=== PATIENT | male | born 1950 | race African-American/Black ===

== ENCOUNTER 2019-01-16 11:07 | Inpatient (IN) | payer OTHER ==
[2019-01-16 12:44] VITALS: BMI 28.8
--- NOTE | 2019-01-16 13:27 | HP ---
COWS - Scale Resting Pulse: 0= [place] 80 or Below Sweatin= No chills or Flushing Restless Observation: 0= Sits Still Pupil Size: 0= Normal to Room Light Bone or Joint Aches: 1= Mild Discomfort Runny Nose/ Eye Tearin= Nasal Congestion GI Upset > 30mins: 2= Nausea/Diarrhea Tremor Observation: 1= Tremor [place], Not Seen Yawning Observation: 2= >3x During Session Anxiety or Irritability: 1=Feels Anxious/Irritable Goose Flesh Skin: 0=Smooth Skin COWS Score: 8 CIWA Score Nausea/Vomitin Muscle Tremors: 3 Anxiety: 4-Mod. Anxious/Guarded Agitation: 0-Normal Activity Paroxysmal Sweats: 1-Minimal Palms Moist Orientation: 0-Oriented Tacttile Disturbances: 1-Very Mild Itch/Numbness Auditory Disturbances: 1-Very Mild Visual Disturbances: 1-Very Mild Sensitivity Headache: 2-Mild CIWA-Ar Total Score: 15 - Admission Criteria [facility]ASAS Guidelines: Admission for Medically Managed Detox: Requires at least one of the followin. CIWA greater than 12 2. Seizures within the past 24 hours 3. Delirium tremens within the past 24 hours 4. Hallucinations within the past 24 hours 5. Acute intervention needed for co occurring medical disorder 6. Acute intervention needed for co occurring psychiatric disorder 7. Severe withdrawal that cannot be handled at a lower level of care (continued vomiting, continued diarrhea, abnormal vital signs) requiring intravenous medication and/or fluids 8. Patient presents the following: CIWA greater than 12 Admission Criteria Met: Admission criteria met Admission ROS [facility] - HPI Chief Complaint: I've got to let this drug stuff go, I'm too old for this, I'm getting sick now, though. Allergies/Adverse Reactions: Allergies Allergy/AdvReac Type Severity Reaction Status Date / Time pollen extracts Allergy Mild Itching Verified 01/16/19 12:31 History of Present Illness: 68 yo gentleman here for detox from opiates and alcohol. Previously here in 2016 for treatment; states he has been using for the last two years. States history of methadone program in the past (years ago, can't remember where or when), never on suboxone program. States he fell yesterday while intoxicated and hurt his hand - seen at [facility] [place] and xray done - no fracture, told to take motrin for pain. Currently homeless. Denies seizures but does have black outs. Exam Limitations: No Limitations - Ebola screening Have you traveled outside of the country in the last 21 days: No (N) Have you had contact with anyone from an Ebola affected area: No Do you have a fever: No - Review of Systems Constitutional: Loss of Appetite, Night Sweats, Changes in sleep EENT: reports: Blurred Vision, Nose Congestion Respiratory: reports: No Symptoms reported Cardiac: reports: No Symptoms Reported GI: reports: Diarrhea, Nausea, Poor Appetite : reports: Frequency Musculoskeletal: reports: Joint Pain (right hand), Muscle Pain Integumentary: reports: Dryness, Rash (psoriatic plaque right arm, left inner arm, back) Neuro: reports: Headache, Tremors Endocrine: reports: No Symptoms Reported Hematology: reports: No Symptoms Reported Psychiatric: reports: Judgement Intact, Mood/Affect Appropiate, Orientated x3, Anxious Other Systems: Reviewed and Negative Patient History - Patient Medical History Hx Anemia: No Hx Asthma: No Hx Chronic Obstructive Pulmonary Disease (COPD): No Hx Cancer: No Hx Cardiac Disorders: No Hx Congestive Heart Failure: No Hx Hypertension: Yes Hx Hypercholesterolemia: No Hx Pacemaker: No HX Cerebrovascular Accident: No Hx Seizures: No Hx Dementia: No Hx Diabetes: No Hx Gastrointestinal Disorders: No Hx Liver Disease: No Hx Genitourinary Disorders: No Hx Sexually Transmitted Disorders: No Hx Renal Disease (ESRD): No Hx Thyroid Disease: No Hx Human Immunodeficiency Virus (HIV): No Hx Hepatitis C: No Hx Depression: No Hx Suicide Attempt: No (denies) Hx Bipolar Disorder: No Hx Schizophrenia: No Other Medical History: psoriasis - Patient Surgical History Past Surgical History: No Hx Neurologic Surgery: No Hx Cataract Extraction: No Hx Cardiac Surgery: No Hx Lung Surgery: No Hx Breast Surgery: No Hx Breast Biopsy: No Hx Abdominal Surgery: Yes (R inguinal hernia in 2015) Hx Appendectomy: No Hx Cholecystectomy: No Hx Genitourinary Surgery: No Hx Section: No Hx Orthopedic Surgery: No Hx Hysterectomy: No Anesthesia Reaction: No - PPD History Previous Implant?: Yes Documented Results: Negative w/proof Implanted On Prior R Admission?: Yes Date: 02/05/15 Results: 0 mm PPD to be Administered?: Yes - Reproductive History Patient is a Female of Child Bearing Age (11 -55 yrs old): No (male) - Smoking Cessation Smoking history: Former smoker Have you smoked in the past 12 months: No If you are a former smoker, when did you quit?: 1971 Cigars Per Day: 0 Hx Chewing Tobacco Use: No Initiated information on smoking cessation: No - Substance & Tx. History Hx Alcohol Use: Yes Hx Substance Use: Yes Substance Use Type: Alcohol, Heroin Hx Substance Use Treatment: Yes (detox, rehab, methadone program in past) - Substances abused Alcohol Substance route: Oral Frequency: Daily Amount used: 12 sixteen oz beers and 6 nips (shots of alcohol) Age of first use: 21 Date of last use: 01/15/19 Heroin Substance route: Inhalation Frequency: Daily Amount used: 6 bags Age of first use: 21 Date of last use: 01/15/19 Family Disease History - Family Disease History Family Disease History: Other: Father (, old age), Mother (, old age), Brother (three - healthy), Sister (two - healthy) Admission Physical Exam [facility] - Vital Signs Vital Signs: Vital Signs - 24 hr 01/16/19 12:20 Temperature 98.6 F Pulse Rate 78 Respiratory 16 Rate Blood Pressure 150/86 - Physical General Appearance: Yes: Nourished, Appropriately Dressed, Moderate Distress, Tremorous, Anxious HEENTM: Yes: EOMI, Hearing grossly Normal, Normal ENT Inspection, Normocephalic , Normal Voice, Nasal Congestion Respiratory: Yes: Normal Breath Sounds, No Respiratory Distress Neck: Yes: No masses,lesions,Nodules, Supple Breast: Yes: Breast Exam Deferred Cardiology: Yes: Regular Rhythm, Regular Rate Abdominal: Yes: Soft Genitourinary: Yes: Frequency Back: Yes: Normal Inspection Musculoskeletal: Yes: full range of Motion, Gait Steady, Other (right hand with mild swelling but able to make a fist and move fingers) Extremities: Yes: Normal Inspection, Normal Range of Motion, Non-Tender Neurological: Yes: Fully Oriented, Alert, Normal Mood/Affect, Normal Response Integumentary: Yes: Normal Color, Dry, Warm, Rash (psoriatic plaques both arms, scattered rash on back), Pitting Edema (bilateral lower extremity 1+ edema) Lymphatic: Yes: Within Normal Limits - Diagnostic (1) Alcohol dependence with uncomplicated withdrawal Current Visit: Yes Status: Chronic (2) Opioid dependence with withdrawal Current Visit: Yes Status: Chronic (3) Essential hypertension Current Visit: Yes Status: Chronic (4) Psoriasis Current Visit: Yes Status: Chronic (5) Bilateral edema of lower extremity Current Visit: Yes Status: Chronic (6) Hand injury Current Visit: Yes Status: Acute Qualifiers: Encounter type: subsequent encounter Laterality: right Qualified Code(s) : S69.91XD - Unspecified injury of right wrist, hand and finger(s), subsequent encounter Comment: states treated at [facility] Cleared for Admission [facility] - Detox or Rehab [facility] Level of Care: Medically Managed Detox Regimen/Protocol: Methadone/Librium Breathalyzer - Breathalyzer Breathalyzer: 0.009 Urine Drug Screen - Test Device Lot number: [id number] Expiration date: 08/28/20 - Control Is test valid?: Yes - Results Drug screen NEGATIVE: No Urine drug screen results: FEN-Fentanyl, MOP-Opiates, MTD-Methadone, BZO- Benzodiazepines Inpatient Rehab Admission - Rehab Decision to Admit Inpatient rehab admission?: No
[2019-01-16] MEDS ORDERED: cloNIDine HCL 0.1 MG TABLET PO PRN (13:30)
[2019-01-16] MEDS ORDERED: MENTHOL/PHENOL 1 EACH UD MM PRN (13:30)
[2019-01-16] MEDS ORDERED: hydrOXYzine PAMOATE 25 MG CAPSULE (FP) PO PRN (13:30)
[2019-01-16] MEDS ORDERED: MAGNESIUM CITRATE 300 ML BOTTLE PO PRN (13:30)
[2019-01-16] MEDS ORDERED: BISMUTH SUBSALICYLATE 524 MG/30 ML UD PO PRN (13:30)
[2019-01-16] MEDS ORDERED: chlordiazePOXIDE HCL 25 MG CAPSULE PO PRN (13:30)
[2019-01-16] MEDS ORDERED: MAGNESIUM HYDROX 2400MG/30ML ORAL SUSPENSION 30 ML CUP PO PRN (13:30)
[2019-01-16] MEDS ORDERED: ACETAMINOPHEN 325 MG TABLET (FP) PO PRN ×2 (13:30)
[2019-01-16] MEDS ORDERED: METHOCARBAMOL 500 MG TABLET PO PRN (13:30)
[2019-01-16] MEDS ORDERED: MAG HYDROX/AL HYDROX/SIMETH 30 ML UNIT-DOSE CUP PO PRN (13:30)
[2019-01-16] MEDS ORDERED: MELATONIN 5 MG TABLETS PO PRN (13:30)
[2019-01-16] MEDS ORDERED: COLLOIDAL OATMEAL 1 BAR EACH TP PRN (13:35)
[2019-01-16] MEDS ORDERED: METHADONE HCL 10 MG TABLET PO ONE (14:00)
[2019-01-16] MEDS ORDERED: chlordiazePOXIDE HCL 25 MG CAPSULE PO ONE (14:00)
[2019-01-16] MEDS: amLODIPine BESYLATE 5 MG TABLET (FP) PO SCH (14:46)
[2019-01-16] MEDS: CALAMINE 8% TOPICAL LOTION 177 ML BOTTLE TP SCH (14:47)
[2019-01-16] MEDS: MINERAL OIL/PETROLAT/WATER TOPICAL CREAM 113 GM JAR TP SCH ×2 (14:47→22:49)
[2019-01-16] MEDS: HYDROCORTISONE 1% TOPICAL CREAM 30 GM TUBE TP SCH (14:48)
[2019-01-16] MEDS: chlordiazePOXIDE HCL 25 MG CAPSULE PO SCH ×2 (17:28→22:50)
[2019-01-16] MEDS ORDERED: HYDROCORTISONE 1% TOPICAL OINT 30 GM TUBE TP SCH (22:00)
[2019-01-16] MEDS: THIAMINE HCL 100 MG TABLET (FP) PO SCH (22:50)
[2019-01-16] MEDS ORDERED: METHADONE HCL 10 MG TABLET (FOR DETOX USE ONLY) PO ONE (23:00)
[2019-01-17] MEDS: VITAMINS A AND D TOPICAL OINTMENT 60 GM TUBE TP SCH ×4 (00:30→18:56)
[2019-01-17] MEDS: chlordiazePOXIDE HCL 25 MG CAPSULE PO SCH ×4 (05:34→22:38)
--- NOTE | 2019-01-17 08:40 | PN ---
[facility] CIWA - CIWA Score Nausea/Vomitin-Mild Nausea/No Vomiting Muscle Tremors: 2 Anxiety: 2 Agitation: 3 Paroxysmal Sweats: 1-Minimal Palms Moist Orientation: 2-Disoriented Date<2 days Tacttile Disturbances: 0-None Auditory Disturbances: 0-None Visual Disturbances: 0-None Headache: 0-None Present CIWA-Ar Total Score: 11 [facility] COWS - Scale Resting Pulse: 0= [place] 80 or Below Sweatin= Chills/Flushing Restless Observation: 0= Sits Still Pupil Size: 0= Normal to Room Light Bone or Joint Aches: 1= Mild Discomfort Runny Nose/ Eye Tearin= Nasal Congestion GI Upset > 30mins: 1= Stomach Cramp Tremor Observation of Outstretched Hands: 1= Tremor [place], Not Seen Yawning Observation: 1= 1-2x During Session Anxiety or Irritability: 1=Feels Anxious/Irritable Goose Flesh Skin: 0=Smooth Skin COWS Score: 7 [facility] Progress Note (SOAP) Subjective: feeling weak from drinking alcohol requesting ensure bmi 28 encourage patient drinking water reporting poor tolerate to food and fluid ensure 60 ml bid Objective: 01/17/19 08:37 Vital Signs Temperature 97.4 F L 01/17/19 06:34 Pulse Rate 63 01/17/19 06:34 Respiratory Rate 18 01/17/19 06:34 Blood Pressure 128/76 01/17/19 06:34 O2 Sat by Pulse Oximetry (%) 01/17/19 08:38 lab pending Assessment: 01/17/19 08:38 alcohol and opiate withdrawal Plan: continue detox
[2019-01-17] MEDS ORDERED: METHADONE HCL 5 MG TABLET (FOR DETOX USE ONLY) PO ONE (10:00)
[2019-01-17] MEDS: PRENATAL VITAMINS W/ FOLIC ACID TABLET (FP) PO SCH (10:03)
[2019-01-17] MEDS: amLODIPine BESYLATE 5 MG TABLET (FP) PO SCH (10:03)
[2019-01-17] MEDS: MINERAL OIL/PETROLAT/WATER TOPICAL CREAM 113 GM JAR TP SCH ×2 (10:05→22:47)
[2019-01-17] MEDS: CALAMINE 8% TOPICAL LOTION 177 ML BOTTLE TP SCH (10:05)
[2019-01-17] MEDS: HYDROCORTISONE 1% TOPICAL CREAM 30 GM TUBE TP SCH (10:05)
[2019-01-17 10:18] LABS: ALBUMIN 3.1 g/dl (3.4-5.0); ALK PHOS 70 U/L (45-117); ANION GAP 5 MMOL/L (8-16); BILIRUBIN,TOTAL 0.6 mg/dL (0.2-1); BLOOD UREA NITROGEN 17 mg/dL (7-18); CALCIUM 8.4 mg/dL (8.5-10.1); CHLORIDE 106 mmol/L (98-107); CO2 29 mmol/L (21-32); CREATININE 0.7 mg/dL (0.55-1.3); GLUCOSE,RANDOM 81 mg/dL (74-106); POTASSIUM 4.3 mmol/L (3.5-5.1); SGOT/AST 35 U/L (15-37); SGPT/ALT 36 U/L (13-61); SODIUM 141 mmol/L (136-145)
[2019-01-17 10:31] LABS: HEMATOCRIT 37.9 % (35.4-49); HEMOGLOBIN 12.7 GM/dL (11.7-16.9); MCH 31.9 pg (25.7-33.7); MCHC 33.5 g/dl (32.0-35.9); MEAN CELL VOLUME 95.2 fl (80-96); MEAN PLT VOLUME 9.5 fl (7.5-11.1); PLATELET COUNT 225 K/MM3 (134-434); RBC 3.98 M/mm3 (4.00-5.60); RDW 13.2 % (11.9-15.9); WHITE BLOOD COUNT 6.2 K/mm3 (4.0-10.0)
[2019-01-17] MEDS: IBUPROFEN 400 MG TABLET (FP) PO PRN (11:47)
--- NOTE | 2019-01-17 13:01 | EKG ---
Test Reason : Blood Pressure : / mmHG Vent. Rate : 073 BPM Atrial Rate : 073 BPM P-R Int : 148 ms QRS Dur : 090 ms QT Int : 432 ms P-R-T Axes : 069 047 052 degrees QTc Int : 475 ms NORMAL SINUS RHYTHM NORMAL ECG NO PREVIOUS ECGS AVAILABLE Confirmed by MD ROBERT, IVAN ([id number]) on 01/17/2019 1:01:07 PM Referred By: TANISHA LOU Confirmed By:IVAN JONES MD
[2019-01-17] MEDS: THIAMINE HCL 100 MG TABLET (FP) PO SCH (22:38)
[2019-01-18] MEDS: VITAMINS A AND D TOPICAL OINTMENT 60 GM TUBE TP SCH ×4 (00:11→17:40)
[2019-01-18] MEDS: chlordiazePOXIDE HCL 25 MG CAPSULE PO SCH ×2 (06:26→10:11)
[2019-01-18] MEDS ORDERED: METHADONE HCL 10 MG TABLET (FOR DETOX USE ONLY) PO ONE (10:00)
[2019-01-18] MEDS: amLODIPine BESYLATE 5 MG TABLET (FP) PO SCH (10:11)
[2019-01-18] MEDS: MINERAL OIL/PETROLAT/WATER TOPICAL CREAM 113 GM JAR TP SCH ×2 (10:11→23:54)
[2019-01-18] MEDS: PRENATAL VITAMINS W/ FOLIC ACID TABLET (FP) PO SCH (10:11)
[2019-01-18] MEDS: HYDROCORTISONE 1% TOPICAL CREAM 30 GM TUBE TP SCH (10:12)
[2019-01-18] MEDS: IBUPROFEN 400 MG TABLET (FP) PO PRN (10:12)
[2019-01-18] MEDS: CALAMINE 8% TOPICAL LOTION 177 ML BOTTLE TP SCH (10:13)
[2019-01-18] MEDS ORDERED: amLODIPine BESYLATE 5 MG TABLET (FP) PO ONE (15:41)
--- NOTE | 2019-01-18 15:42 | PN ---
[facility] CIWA - CIWA Score Nausea/Vomitin-No Nausea/No Vomiting Muscle Tremors: 2 Anxiety: 4-Mod. Anxious/Guarded Agitation: 1-Slight > Activity Paroxysmal Sweats: No Perspiration Orientation: 0-Oriented Tacttile Disturbances: 2-Mild Itch/Numbness/Burn Auditory Disturbances: 2-Mild Harshness/Frighten Visual Disturbances: 0-None Headache: 0-None Present CIWA-Ar Total Score: 11 S COWS - Scale Resting Pulse: 0= [place] 80 or Below Sweatin= No chills or Flushing Restless Observation: 1= Difficult to Sit Still Pupil Size: 0= Normal to Room Light Bone or Joint Aches: 0= None Runny Nose/ Eye Tearin= None GI Upset > 30mins: 0= None Tremor Observation of Outstretched Hands: 2= Slight Tremor Visible Yawning Observation: 1= 1-2x During Session Anxiety or Irritability: 4=Extreme Anxiety Goose Flesh Skin: 3=Piloerection COWS Score: 11 S Progress Note (SOAP) Subjective: Anxious, Tremors, Body Aches Interrupted Sleep. Objective: PATIENT A & O X 3, OBSERVED AMBULATING ON UNIT UNASSISTED. IN NO ACUTE DISTRESS. 01/18/19 15:43 Vital Signs Temperature 97.4 F L 01/18/19 13:40 Pulse Rate 65 01/18/19 13:40 Respiratory Rate 18 01/18/19 13:40 Blood Pressure 153/83 01/18/19 13:40 O2 Sat by Pulse Oximetry (%) Laboratory Tests 01/17/19 01/17/19 01/17/19 07:40 07:40 07:40 WBC 6.2 RBC 3.98 L Hgb 12.7 Hct 37.9 MCV 95.2 MCH 31.9 MCHC 33.5 RDW 13.2 Plt Count 225 MPV 9.5 Sodium 141 Potassium 4.3 Chloride 106 Carbon Dioxide 29 Anion Gap 5 L BUN 17 Creatinine 0.7 Creat Clearance w eGFR 112.15 Random Glucose 81 Calcium 8.4 L Total Bilirubin 0.6 AST 35 ALT 36 Alkaline Phosphatase 70 Total Protein 6.0 L Albumin 3.1 L RPR Titer Nonreactive LABS NOTED. Assessment: 01/18/19 15:44 WITHDRAWAL SYMPTOMS. HYPERTENSION. Plan: CONTINUE DETOX. INCREASE DAILY DOSE OF AMLODIPINE TO 10 MG PO DAILY FOR ELEVATED BP DESPITE PREVIOUS TREATMENT.
[2019-01-18] MEDS ORDERED: chlordiazePOXIDE HCL 10 MG CAPSULE PO PRN (17:00)
[2019-01-18] MEDS: chlordiazePOXIDE HCL 10 MG CAPSULE PO SCH ×2 (17:36→22:20)
[2019-01-18] MEDS: THIAMINE HCL 100 MG TABLET (FP) PO SCH (22:20)
[2019-01-18] MEDS: AMMONIUM LACTATE 12% LOTION 225 GM BOTTLE TP SCH (23:54)
[2019-01-19] MEDS: VITAMINS A AND D TOPICAL OINTMENT 60 GM TUBE TP SCH ×5 (01:06→23:59)
[2019-01-19] MEDS ORDERED: METHADONE HCL 5 MG TABLET (FOR DETOX USE ONLY) PO ONE (06:00)
[2019-01-19] MEDS: chlordiazePOXIDE HCL 10 MG CAPSULE PO SCH ×3 (06:45→17:23)
[2019-01-19] MEDS: PRENATAL VITAMINS W/ FOLIC ACID TABLET (FP) PO SCH (10:27)
[2019-01-19] MEDS: HYDROCORTISONE 1% TOPICAL CREAM 30 GM TUBE TP SCH (10:27)
[2019-01-19] MEDS: amLODIPine BESYLATE 10 MG TABLET (FP) PO SCH (10:27)
[2019-01-19] MEDS: CALAMINE 8% TOPICAL LOTION 177 ML BOTTLE TP SCH (10:27)
[2019-01-19] MEDS: MINERAL OIL/PETROLAT/WATER TOPICAL CREAM 113 GM JAR TP SCH ×2 (10:27→22:25)
[2019-01-19] MEDS: AMMONIUM LACTATE 12% LOTION 225 GM BOTTLE TP SCH ×2 (10:29→22:26)
--- NOTE | 2019-01-19 17:25 | PN ---
[facility] CIWA - CIWA Score Nausea/Vomitin-No Nausea/No Vomiting Muscle Tremors: None Anxiety: 4-Mod. Anxious/Guarded Agitation: 2 Paroxysmal Sweats: No Perspiration Orientation: 0-Oriented Tacttile Disturbances: 2-Mild Itch/Numbness/Burn Auditory Disturbances: 1-Very Mild Visual Disturbances: 2-Mild Sensitivity Headache: 0-None Present CIWA-Ar Total Score: 11 S COWS - Scale Resting Pulse: 1= [place] 81-100 Sweatin= No chills or Flushing Restless Observation: 1= Difficult to Sit Still Pupil Size: 0= Normal to Room Light Bone or Joint Aches: 2= Severe Diffuse Aches Runny Nose/ Eye Tearin= None GI Upset > 30mins: 0= None Tremor Observation of Outstretched Hands: 0= None Yawning Observation: 0= None Anxiety or Irritability: 4=Extreme Anxiety Goose Flesh Skin: 0=Smooth Skin COWS Score: 8 [facility] Progress Note (SOAP) Subjective: Anxious, Body Aches, Interrupted Sleep. Objective: PATIENT A & O X 3, OBSERVED AMBULATING ON UNIT UNASSISTED. IN NO ACUTE DISTRESS. 01/19/19 17:23 Vital Signs Temperature 96.7 F L 01/19/19 13:29 Pulse Rate 81 01/19/19 13:29 Respiratory Rate 18 01/19/19 13:29 Blood Pressure 116/77 01/19/19 13:29 O2 Sat by Pulse Oximetry (%) Laboratory Tests 01/17/19 01/17/19 01/17/19 07:40 07:40 07:40 WBC 6.2 RBC 3.98 L Hgb 12.7 Hct 37.9 MCV 95.2 MCH 31.9 MCHC 33.5 RDW 13.2 Plt Count 225 MPV 9.5 Sodium 141 Potassium 4.3 Chloride 106 Carbon Dioxide 29 Anion Gap 5 L BUN 17 Creatinine 0.7 Creat Clearance w eGFR 112.15 Random Glucose 81 Calcium 8.4 L Total Bilirubin 0.6 AST 35 ALT 36 Alkaline Phosphatase 70 Total Protein 6.0 L Albumin 3.1 L RPR Titer Nonreactive LABS NOTED. Assessment: 01/19/19 17:24 WITHDRAWAL SYMPTOMS. Plan: CONTINUE DETOX. INCREASE DAILY PO FLUID INTAKE.
[2019-01-19] MEDS: THIAMINE HCL 100 MG TABLET (FP) PO SCH (22:24)
[2019-01-20] MEDS: chlordiazePOXIDE HCL 10 MG CAPSULE PO SCH ×2 (05:53→17:59)
[2019-01-20] MEDS: IBUPROFEN 400 MG TABLET (FP) PO PRN (05:55)
[2019-01-20] MEDS: VITAMINS A AND D TOPICAL OINTMENT 60 GM TUBE TP SCH ×4 (05:56→23:10)
[2019-01-20] MEDS: amLODIPine BESYLATE 10 MG TABLET (FP) PO SCH (10:43)
[2019-01-20] MEDS: CALAMINE 8% TOPICAL LOTION 177 ML BOTTLE TP SCH (10:43)
[2019-01-20] MEDS: PRENATAL VITAMINS W/ FOLIC ACID TABLET (FP) PO SCH (10:43)
[2019-01-20] MEDS: MINERAL OIL/PETROLAT/WATER TOPICAL CREAM 113 GM JAR TP SCH ×2 (10:43→22:37)
[2019-01-20] MEDS: AMMONIUM LACTATE 12% LOTION 225 GM BOTTLE TP SCH ×2 (10:43→22:35)
[2019-01-20] MEDS: HYDROCORTISONE 1% TOPICAL CREAM 30 GM TUBE TP SCH (10:44)
--- NOTE | 2019-01-20 11:00 | PN ---
[facility] CIWA - CIWA Score Nausea/Vomitin-No Nausea/No Vomiting Muscle Tremors: 2 Anxiety: 2 Agitation: 1-Slight > Activity Paroxysmal Sweats: 1-Minimal Palms Moist Orientation: 0-Oriented Tacttile Disturbances: 0-None Auditory Disturbances: 0-None Visual Disturbances: 0-None Headache: 1-Very Mild CIWA-Ar Total Score: 7 [facility] COWS - Scale Resting Pulse: 1= [place] 81-100 Sweatin= No chills or Flushing Restless Observation: 0= Sits Still Pupil Size: 0= Normal to Room Light Bone or Joint Aches: 1= Mild Discomfort Runny Nose/ Eye Tearin= Nasal Congestion GI Upset > 30mins: 0= None Tremor Observation of Outstretched Hands: 1= Tremor [place], Not Seen Yawning Observation: 0= None Anxiety or Irritability: 1=Feels Anxious/Irritable Goose Flesh Skin: 0=Smooth Skin COWS Score: 5 [facility] Progress Note (SOAP) Subjective: chart reviewed that the patient had withdrawal sx yesterday therefore not been discharged today patient is feeling better today with ciwa 7 and cows 5 brief writer will discuss aftercare with counselor waiting for counselor arrival around 12 noon Objective: 01/20/19 11:02 Vital Signs Temperature 97.5 F L 01/20/19 10:42 Pulse Rate 83 01/20/19 10:42 Respiratory Rate 18 01/20/19 10:42 Blood Pressure 144/85 01/20/19 10:42 O2 Sat by Pulse Oximetry (%) Laboratory Last Values WBC 6.2 K/mm3 (4.0-10.0) 01/17/19 07:40 RBC 3.98 M/mm3 (4.00-5.60) L 01/17/19 07:40 Hgb 12.7 GM/dL (11.7-16.9) 01/17/19 07:40 Hct 37.9 % (35.4-49) 01/17/19 07:40 MCV 95.2 fl (80-96) 01/17/19 07:40 MCH 31.9 pg (25.7-33.7) 01/17/19 07:40 MCHC 33.5 g/dl (32.0-35.9) 01/17/19 07:40 RDW 13.2 % (11.9-15.9) 01/17/19 07:40 Plt Count 225 K/MM3 (134-434) 01/17/19 07:40 MPV 9.5 fl (7.5-11.1) 01/17/19 07:40 Sodium 141 mmol/L (136-145) 01/17/19 07:40 Potassium 4.3 mmol/L (3.5-5.1) 01/17/19 07:40 Chloride 106 mmol/L (98-107) 01/17/19 07:40 Carbon Dioxide 29 mmol/L (21-32) 01/17/19 07:40 Anion Gap 5 MMOL/L (8-16) L 01/17/19 07:40 BUN 17 mg/dL (7-18) 01/17/19 07:40 Creatinine 0.7 mg/dL (0.55-1.3) 01/17/19 07:40 Creat Clearance w eGFR 112.15 (>60) 01/17/19 07:40 Random Glucose 81 mg/dL (74-106) 01/17/19 07:40 Calcium 8.4 mg/dL (8.5-10.1) L 01/17/19 07:40 Total Bilirubin 0.6 mg/dL (0.2-1) 01/17/19 07:40 AST 35 U/L (15-37) 01/17/19 07:40 ALT 36 U/L (13-61) 01/17/19 07:40 Alkaline Phosphatase 70 U/L (45-117) 01/17/19 07:40 Total Protein 6.0 g/dl (6.4-8.2) L 01/17/19 07:40 Albumin 3.1 g/dl (3.4-5.0) L 01/17/19 07:40 RPR Titer Nonreactive (NONREACTIVE) 01/17/19 07:40 lab noted Assessment: 01/20/19 11:02 mild alcohol and opiate withdrawal sx Plan: continue detox from alcohol and opiate
[2019-01-20] MEDS: METHYL SALICYLATE/MENTHOL OINT 30 GM TUBE TP SCH ×2 (12:03→22:32)
[2019-01-20] MEDS: THIAMINE HCL 100 MG TABLET (FP) PO SCH (22:35)
[2019-01-21] MEDS: VITAMINS A AND D TOPICAL OINTMENT 60 GM TUBE TP SCH (06:03)
[2019-01-21] MEDS: PRENATAL VITAMINS W/ FOLIC ACID TABLET (FP) PO SCH (09:04)
[2019-01-21] MEDS: amLODIPine BESYLATE 10 MG TABLET (FP) PO SCH (09:05)
[2019-01-21 09:21] VITALS: BP 136/85; PULSE 82; TEMP 96.7
--- NOTE | 2019-01-21 09:51 | DS ---
[facility] Detox Discharge Summary Admission Date: 01/16/19 Discharge Date: 01/21/19 - History Present History: Alcohol Dependence, Opioid Dependence Additional Comments: 68 years old male admitted on 01/16/19 for alcohol and opiate withdrawal stablization completed detox regimen aftercare patient wants to go to crisis facility waiting for housing Pertinent Past History: bring in medication list and lab report to aftercare appointment - Physical Exam Results Vital Signs: Vital Signs Temperature 96.7 F L 01/21/19 09:20 Pulse Rate 82 01/21/19 09:20 Respiratory Rate 18 01/21/19 09:20 Blood Pressure 136/85 01/21/19 09:20 O2 Sat by Pulse Oximetry (%) Pertinent Admission Physical Exam Findings: alcohol and opiate withdrawal sx Laboratory Last Values WBC 6.2 K/mm3 (4.0-10.0) 01/17/19 07:40 RBC 3.98 M/mm3 (4.00-5.60) L 01/17/19 07:40 Hgb 12.7 GM/dL (11.7-16.9) 01/17/19 07:40 Hct 37.9 % (35.4-49) 01/17/19 07:40 MCV 95.2 fl (80-96) 01/17/19 07:40 MCH 31.9 pg (25.7-33.7) 01/17/19 07:40 MCHC 33.5 g/dl (32.0-35.9) 01/17/19 07:40 RDW 13.2 % (11.9-15.9) 01/17/19 07:40 Plt Count 225 K/MM3 (134-434) 01/17/19 07:40 MPV 9.5 fl (7.5-11.1) 01/17/19 07:40 Sodium 141 mmol/L (136-145) 01/17/19 07:40 Potassium 4.3 mmol/L (3.5-5.1) 01/17/19 07:40 Chloride 106 mmol/L (98-107) 01/17/19 07:40 Carbon Dioxide 29 mmol/L (21-32) 01/17/19 07:40 Anion Gap 5 MMOL/L (8-16) L 01/17/19 07:40 BUN 17 mg/dL (7-18) 01/17/19 07:40 Creatinine 0.7 mg/dL (0.55-1.3) 01/17/19 07:40 Creat Clearance w eGFR 112.15 (>60) 01/17/19 07:40 Random Glucose 81 mg/dL (74-106) 01/17/19 07:40 Calcium 8.4 mg/dL (8.5-10.1) L 01/17/19 07:40 Total Bilirubin 0.6 mg/dL (0.2-1) 01/17/19 07:40 AST 35 U/L (15-37) 01/17/19 07:40 ALT 36 U/L (13-61) 01/17/19 07:40 Alkaline Phosphatase 70 U/L (45-117) 01/17/19 07:40 Total Protein 6.0 g/dl (6.4-8.2) L 01/17/19 07:40 Albumin 3.1 g/dl (3.4-5.0) L 01/17/19 07:40 RPR Titer Nonreactive (NONREACTIVE) 01/17/19 07:40 lab noted - Treatment Hospital Course: Detox Protocol Followed, Detoxed Safely, Responded well, Discharged Condition Good, Rehab Referral Accepted Patient has Accepted a Rehab Referral to: crisis facility to residential - Medication Discharge Medications: Ambulatory Orders Loratadine [Claritin -] 10 mg PO DAILY 02/03/15 Vits A and D/White Pet/Lanolin [A + D Ointment] 1 applic TP BID 11/18/15 Amlodipine Besylate [Norvasc -] 5 mg PO DAILY 01/16/19 Hydrocortisone 1% Cream [Hytone 1% Cream -] 1 applic TP DAILY 01/16/19 - Diagnosis (1) Alcohol dependence with uncomplicated withdrawal Status: Acute (2) Essential hypertension Status: Chronic (3) Opioid dependence with withdrawal Status: Acute - AMA Did Patient Leave Against Medical Advice: No
== END 2019-01-21 09:52 | disposition home or self-care (01) | DRG 773 ==
LOC: YASAS 11:07 → Y3N 13:37
PROVIDERS: ADMIT Surgery; ATTEND Surgery
PROC: HZ2ZZZZ Detoxification Services for Substance Abuse Treatment (ICD-10-PCS; principal; 2019-01-16)
DX: F10.230 Alcohol dependence with withdrawal, uncomplicated (principal); F11.23 Opioid dependence with withdrawal; I10 Essential (primary) hypertension; L40.9 Psoriasis, unspecified; R60.0 Localized edema; Z59.0 Homelessness
CPT/HCPCS: 36415; 80053; 85027; 86593; 93005; 93010